=== PATIENT | female | born 1960 | race Caucasian/White ===

== ENCOUNTER → 2023-10-28 | Outpatient (CLI) | payer OTHER | LOC: LAB SHORT 23:29 → LAB 23:29 | DX: R39.15 Urgency of urination (principal) | CPT/HCPCS: 87086 ==

== ENCOUNTER 2024-07-03 17:54 | Emergency (ER) | payer OTHER ==
[~2024-07-03] VITALS: Ht 162.6 cm; Wt 67.1 kg
[2024-07-03] MEDS ORDERED: EPINEPhrine HCl 1 MG/ML 1ML Amp IM ONE (18:00)
[2024-07-03] MEDS ORDERED: DiphenhydrAMINE HCl 50 MG Cap PO ONE (18:05)
[2024-07-03] MEDS ORDERED: Famotidine 20 MG Tab PO ONE (18:05)
[2024-07-03] MEDS ORDERED: Albuterol 2.5 MG/3 ML VIAL INH SCH (18:10)
[2024-07-03] MEDS ORDERED: EUTHYROX50 MC1 PO (18:11)
[2024-07-03] MEDS ORDERED: FLUTICASONE-SA1 EAC8 INH (18:11)
[2024-07-03] MEDS ORDERED: EPIPEN0.3 MG/0.1 IM (20:31)
== END 2024-07-03 20:47 | disposition home or self-care (01) ==
LOC: ER 17:54
DX: T78.2XXA Anaphylactic shock, unspecified, initial encounter (principal); Z79.51 Long term (current) use of inhaled steroids; Z79.890 Hormone replacement therapy
CPT/HCPCS: 94644; 94664; 99283-25; A9270; J0171